=== PATIENT | female | born 1950 | race Two or more races ===

== ENCOUNTER 2024-04-17 11:39 | Inpatient (IN) | payer OTHER, MEDICAID ==
[2024-04-17] VITALS (15 sets, daily range): BP systolic 86–108; BP diastolic 45–69; PULSE 68–149; RESP 12–21; TEMP 98.6; O2SAT 95–99
[~2024-04-17] VITALS: Ht 154.9 cm; Wt 70.2 kg
[2024-04-17] MEDS: dilTIAZem 25 MG/5 ML VIAL IV ONE (12:36)
[2024-04-17 12:40] LABS: Basophils # (auto) 0 10 ^3/uL (0-0.2); Basophils % (auto) 0.4 % (0.0-2.0); Eosinophils # (auto) 0.1 10 ^3/uL (0-0.8); Eosinophils % (auto) 1.6 % (0.0-7.0); Hematocrit 45.3 % (36.0-46.0); Hemoglobin 14.9 g/dL (12.2-16.2); Lymphocytes # (auto) 1.6 10 ^3/uL (0.4-5.4); Lymphocytes % (auto) 17.8 % (10.0-50.0); Mean Corpuscular Volume 100.3 fL (80.0-100.0); Monocytes # (auto) 0.7 10 ^3/uL (0-1.3); Monocytes % (auto) 7.7 % (0.0-12.0); Neutrophils # (auto) 6.7 10 ^3/uL (1.6-8.6); Neutrophils % (auto) 72.5 % (37.0-80.0); Nucleated Red Blood Cells % 0.1 %; Red Blood Cells 4.52 10^6/uL (4.0-5.20); Red Cell Distribution Width 14.1 % (11.8-14.3); White Blood Cell 9.2 10^3/uL (4.4-10.8)
[2024-04-17 12:56] LABS: Chloride 108 mmol/L (98-107); Potassium 3.9 mmol/L (3.5-5.1); Sodium 140 mmol/L (136-145)
[2024-04-17 12:57] LABS: Anion Gap 11 (5-15); Calcium 9.6 mg/dL (8.5-10.1); Carbon Dioxide 21 mmol/L (20-30)
[2024-04-17 13:02] LABS: BUN/Creatinine Ratio 14.3 (10.0-20.0); Blood Urea Nitrogen 7 mg/dL (9-23); Glucose 129 mg/dL (74-106)
[2024-04-17] MEDS: SODIUM CHLORIDE 0.9% 1,000 ML IV SCH (15:15)
[2024-04-17] MEDS ORDERED: NITROGLYCERIN 0.4 MG SL TAB SL PRN (15:15)
[2024-04-17] MEDS ORDERED: MORPHINE SULFATE INJ 2 MG/ml SYRG IV PRN (15:15)
[2024-04-17] MEDS ORDERED: ALBU0.084 NEB (15:22)
[2024-04-17] MEDS ORDERED: CHOL1TAB30 PO (15:22)
[2024-04-17] MEDS ORDERED: SUL500T PO (15:22)
[2024-04-17] MEDS ORDERED: APIX5TAB PO (15:22)
[2024-04-17] MEDS ORDERED: PARO10TA93 PO (15:22)
[2024-04-17] MEDS ORDERED: DILT120C41 PO (15:22)
[2024-04-17] MEDS ORDERED: BUDE1AER5 PO (15:22)
[2024-04-17] MEDS ORDERED: DILT-100 PO (15:22)
[2024-04-17] MEDS ORDERED: LOSA-534 PO (15:22)
[2024-04-17] MEDS ORDERED: OMEP1CAP70 PO (15:22)
[2024-04-17] MEDS ORDERED: LEVO50TA7 PO (15:22)
[2024-04-17] MEDS ORDERED: FOLI-119 PO (15:22)
[2024-04-17 16:35] LABS: Triglycerides 69 mg/dL (< 150)
[2024-04-17 16:36] LABS: LDL Cholesterol 123 mg/dL (< 100)
[2024-04-17 16:37] LABS: Cholesterol 181 mg/dL (< 200); HDL Cholesterol 58 mg/dL (40-59)
[2024-04-17 17:02] LABS: INR 1.18 (0.9-1.15); Prothrombin Time 12.4 sec (9.3-11.8)
[2024-04-17] MEDS: dilTIAZem 125mg/125ml BAG KIT 125 ML IV SCH (17:30)
[2024-04-17 19:48] LABS: Urine Bacteria MANY /hpf (None Seen); Urine Blood Negative /uL (Negative); Urine Clarity Turbid (Clear); Urine Color Yellow (Yellow); Urine Mucus FEW (None Seen); Urine Protein, UAD 2+ (Negative); Urine Specific Gravity 1.018 (1.001-1.035); Urine Urobilinogen Normal (Negative); Urine WBC 43 /hpf (0 - 5)
[2024-04-17 19:51] LABS: Amphetamine Screen, Urine Neg (NEGATIVE); Barbiturate Scree,Urine Neg (NEGATIVE); Benzodiazephine Screen, Urine Neg (NEGATIVE); Cocaine Screen, Urine Neg (NEGATIVE); Opiate Scree,Urine Neg (NEGATIVE)
[2024-04-17 19:52] LABS: Cannabinoid Screen, Urine Neg (NEGATIVE); Phencyclidine Screen, Urine Neg (NEGATIVE)
[2024-04-18] VITALS (47 sets, daily range): BP systolic 93–132; BP diastolic 48–82; PULSE 75–110; RESP 12–26; TEMP 98.2–99.3; O2SAT 97–100
[2024-04-18 06:10] LABS: Basophils # (auto) 0.1 10 ^3/uL (0-0.2); Basophils % (auto) 0.7 % (0.0-2.0); Eosinophils # (auto) 0.5 10 ^3/uL (0-0.8); Eosinophils % (auto) 4.6 % (0.0-7.0); Hemoglobin 13.7 g/dL (12.2-16.2); Lymphocytes # (auto) 2.6 10 ^3/uL (0.4-5.4); Lymphocytes % (auto) 25.7 % (10.0-50.0); Mean Corpuscular Hemoglobin 33.1 pg (28.0-32.0); Mean Corpuscular Hgb Conc. 31.9 g/dL (32.0-36.0); Mean Corpuscular Volume 103.9 fL (80.0-100.0); Monocytes # (auto) 1.1 10 ^3/uL (0-1.3); Monocytes % (auto) 11.2 % (0.0-12.0); Neutrophils # (auto) 5.8 10 ^3/uL (1.6-8.6); Neutrophils % (auto) 57.8 % (37.0-80.0); Nucleated Red Blood Cells % 0.2 %; Red Blood Cells 4.14 10^6/uL (4.0-5.20); Red Cell Distribution Width 15.2 % (11.8-14.3); White Blood Cell 10.1 10^3/uL (4.4-10.8)
[2024-04-18 06:20] LABS: Albumin 3.6 g/dL (3.2-4.8); Alkaline Phosphatase 65 U/L (46-116); Anion Gap 7 (5-15); Aspartate Aminotransferase 12 U/L (13-40); Bilirubin, Total 0.2 mg/dL (0.2-1.0); Blood Urea Nitrogen 8 mg/dL (9-23); Calcium 9.6 mg/dL (8.5-10.1); Carbon Dioxide 23 mmol/L (20-30); Chloride 110 mmol/L (98-107); Glucose 105 mg/dL (74-106); Potassium 3.9 mmol/L (3.5-5.1); Sodium 140 mmol/L (136-145)
[2024-04-18 06:21] LABS: Total Protein 5.9 g/dL (5.7-8.2)
[2024-04-18 06:22] LABS: Alanine Aminotransferase < 9 U/L (7-40)
[2024-04-18] MEDS: ACETAMINOPHEN 325 MG TAB PO PRN (10:33)
[2024-04-18] MEDS ORDERED: LORazepam 2MG/ML-1ML VIAL IV PRN (21:45)
[2024-04-19] VITALS (48 sets, daily range): BP systolic 88–156; BP diastolic 60–94; PULSE 70–124; RESP 13–24; TEMP 97.6–98.8; O2SAT 95–100
[2024-04-19] MEDS ORDERED: HYDR200T36 PO (15:25)
[2024-04-19] MEDS: cefTRIAXone 1GM/50ML D5W 50 ML IV ONE (16:15)
[2024-04-19] MEDS: hydrOXYchloroQUINE SULFATE 200 MG TAB PO SCH (22:00)
[2024-04-20] VITALS (21 sets, daily range): BP systolic 110–147; BP diastolic 55–78; PULSE 77–121; RESP 16–24; TEMP 97.8–98.9; O2SAT 95–99
[2024-04-20] MEDS: LEVOTHYROXINE SODIUM 50 MCG TAB PO SCH (06:25)
[2024-04-20] MEDS: AMIODARONE HCL 200 MG TAB PO SCH (10:28)
[2024-04-20] MEDS: dilTIAZem HCL 60 MG TAB PO SCH (10:29)
[2024-04-20] MEDS: cefTRIAXone 1GM/50ML D5W 50 ML IV SCH (10:29)
[2024-04-20] MEDS: PARoxetine 20 MG TAB PO SCH (10:29)
[2024-04-20] MEDS: APIXABAN 5 MG TAB PO SCH (23:34)
[2024-04-21] VITALS (9 sets, daily range): BP systolic 124–150; BP diastolic 66–99; PULSE 54–109; RESP 17–22; TEMP 97.7–98.6; O2SAT 67–100
[2024-04-22 01:20] VITALS: BP 147/96; PULSE 86; RESP 19; TEMP 97.7; O2SAT 96
[2024-04-22 05:36] VITALS: BP 138/86; PULSE 94; RESP 19; TEMP 97.6; O2SAT 100
[2024-04-22 07:45] VITALS: PULSE 60; PULSE 65; RESP 19; O2SAT 100
[2024-04-22 08:00] VITALS: PULSE 92
[2024-04-22 09:00] VITALS: BP 147/74; PULSE 82; RESP 16; TEMP 97.6; O2SAT 99
[2024-04-22] MEDS ORDERED: AUG875T PO (10:42)
[2024-04-22 12:05] VITALS: BP 135/90; PULSE 95; RESP 16; TEMP 98.1; O2SAT 99
[2024-04-22] MEDS: cloNIDine HCL 0.1 MG TAB PO ONE (12:30)
== END 2024-04-22 13:00 | disposition home or self-care (01) | DRG 310 ==
LOC: ER 11:39 → EDBD 11:39 → TELE 15:13 → DOU IN ICU 15:13 → TELE-EAST 04-20 21:50
PROVIDERS: ADMIT Nurse Practitioner Family; ATTEND Family Medicine
DX: I48.20 Chronic atrial fibrillation, unspecified (principal); I10 Essential (primary) hypertension; J45.909 Unspecified asthma, uncomplicated; E66.01 Morbid (severe) obesity due to excess calories; M06.9 Rheumatoid arthritis, unspecified; J32.0 Chronic maxillary sinusitis; J32.3 Chronic sphenoidal sinusitis; Z68.29 Body mass index [BMI] 29.0-29.9, adult; Z79.01 Long term (current) use of anticoagulants; Z83.3 Family history of diabetes mellitus; Z82.49 Family history of ischemic heart disease and other diseases of the circulatory system; G57.92 Unspecified mononeuropathy of left lower limb
CPT/HCPCS: 36415; 70450; 70551; 71045; 73560; 80048; 80053; 80061; 80307; 81001; 84443; 84484; 85025; 85610; 87081; 93005; 93306; 93886; 97110; 97116; 97163; 97530; 99291; G0378